=== PATIENT | male | born 1970 | race Two or more races ===

== ENCOUNTER 2024-11-29 10:04 | Emergency (ER) | payer OTHER ==
[~2024-11-29] VITALS: Ht 177.8 cm; Wt 99.8 kg
[2024-11-29] MEDS ORDERED: METFORMIN HCL1000 MG (10:12)
[2024-11-29] MEDS ORDERED: GLIMEPIRIDE4 MG (10:12)
[2024-11-29] MEDS ORDERED: TOPROL XL25 M1 PO (10:12)
[2024-11-29] MEDS ORDERED: LIPITOR20 MG (10:12)
[2024-11-29] MEDS ORDERED: LIDOCAINE HCL 1% 10ML VIAL ONE (10:40)
[2024-11-29] MEDS ORDERED: BACITRACIN-NEOMYCIN-POLYMYXIN 0.9 GM PACKET TOP ONE (11:41)
[2024-11-29] MEDS ORDERED: CLINDAMYCIN PHOSPHATE 150 MG/ML (900mg) ONE (11:53)
[2024-11-29] MEDS ORDERED: CLINDAMYCIN PHOSPHATE 150 MG/ML (600mg) IM ONE (12:00)
== END 2024-11-29 12:25 | disposition home or self-care (01) ==
LOC: EDBD 10:07 → ER 10:07
DX: S61.022A Laceration with foreign body of left thumb without damage to nail, initial encounter (principal); W22.8XXA Striking against or struck by other objects, initial encounter; Y93.89 Activity, other specified; Y92.89 Other specified places as the place of occurrence of the external cause; Z88.6 Allergy status to analgesic agent; E78.00 Pure hypercholesterolemia, unspecified; I10 Essential (primary) hypertension; E11.9 Type 2 diabetes mellitus without complications; Z79.84 Long term (current) use of oral hypoglycemic drugs

== ENCOUNTER 2024-12-09 12:32 | Emergency (ER) | payer OTHER ==
[~2024-12-09] VITALS: Ht 177.8 cm; Wt 131.5 kg
[~2024-12-09 12:32] MED LIST: GLIMEPIRIDE4 MG; LIPITOR20 MG; METFORMIN HCL1000 MG; TOPROL XL25 M1 PO
[2024-12-09] MEDS ORDERED: CEFTRIAXONE SODIUM 2,000 MG VIAL IV ONE (14:30)
[2024-12-09 15:13] LABS: HEMATOCRIT 42.3 % (39.0-48.0); HEMOGLOBIN 14.2 g/dL (13-16.00); MEAN CELL VOLUME 89.2 fL (80.0-100.00); MEAN CORPUSCULAR HGB CONC 33.6 g/dl (32.0-36.0); PLATELET COUNT 354 K/uL (150-450); RED BLOOD COUNT 4.74 M/uL (4.00-6.00); RED CELL DISTRIBUTION WIDTH 12.8 % (11.5-14.5)
[2024-12-09] MEDS ORDERED: CEFTRIAXONE SODIUM 2,000 MG VIAL ONE (15:16)
== END 2024-12-09 17:18 | disposition home or self-care (01) ==
LOC: ER 12:34
PROVIDERS: General Practice
DX: Z48.02 Encounter for removal of sutures (principal); E11.9 Type 2 diabetes mellitus without complications; Z79.84 Long term (current) use of oral hypoglycemic drugs; Z88.6 Allergy status to analgesic agent

== ENCOUNTER 2024-12-13 10:52 | Emergency (ER) | payer OTHER ==
[~2024-12-13] VITALS: Ht 177.8 cm; Wt 99.8 kg
== END 2024-12-13 11:15 | disposition home or self-care (01) ==
LOC: ER 10:54
DX: Z48.02 Encounter for removal of sutures (principal); Z88.6 Allergy status to analgesic agent